=== PATIENT | female | born 1990 | race African-American/Black ===

== ENCOUNTER 2017-06-29 21:44 | Emergency (ER) | payer MEDICAID ==
[~2017-06-29] VITALS: Ht 170.2 cm; Wt 80.0 kg
[~2017-06-29 21:44] MED LIST: ARIP30TA2; QUET100T
[2017-06-29 22:40] VITALS: BP 110/74
== END 2017-06-30 03:23 | disposition left against medical advice (07) ==
LOC: ER 21:44
DX: R51 Headache (principal); Z53.21 Procedure and treatment not carried out due to patient leaving prior to being seen by health care provider

== ENCOUNTER 2018-04-01 16:04 | Emergency (ER) | payer MEDICAID ==
[~2018-04-01] VITALS: Ht 160 cm; Wt 100.5 kg
[2018-04-01] MEDS ORDERED: LORAZEPAM 1MG TABLET PO ONE (16:30)
[2018-04-01 19:23] VITALS: BP 129/68
== END 2018-04-01 19:24 | disposition home or self-care (01) ==
LOC: ER 17:10
DX: Z76.0 Encounter for issue of repeat prescription (principal); F20.9 Schizophrenia, unspecified; F32.9 Major depressive disorder, single episode, unspecified
CPT/HCPCS: 99283

== ENCOUNTER 2018-11-19 01:13 | Emergency (ER) | payer MEDICAID ==
[~2018-11-19] VITALS: Ht 162.6 cm; Wt 110.3 kg
[2018-11-19 01:16] VITALS: BP 135/74
== END 2018-11-19 08:21 | disposition left against medical advice (07) ==
LOC: ER 01:13
DX: R44.1 Visual hallucinations (principal); R45.851 Suicidal ideations; R07.89 Other chest pain; R06.02 Shortness of breath; Z53.21 Procedure and treatment not carried out due to patient leaving prior to being seen by health care provider

== ENCOUNTER 2018-12-09 14:17 | Emergency (ER) | payer MEDICAID ==
[~2018-12-09] VITALS: Ht 160 cm; Wt 74.0 kg
[2018-12-09] MEDS ORDERED: TETRACAINE 0.5% OPHTH DROPS 4ML OP ONE (15:45)
[2018-12-09] MEDS ORDERED: FLUORESCEIN SODIUM 1MG/STRIP OP ONE (15:45)
[2018-12-09 16:45] VITALS: BP 105/72
== END 2018-12-09 16:52 | disposition home or self-care (01) ==
LOC: ER 14:17
DX: H57.12 Ocular pain, left eye (principal); F14.10 Cocaine abuse, uncomplicated; Z98.890 Other specified postprocedural states
CPT/HCPCS: 99283

== ENCOUNTER 2019-01-12 14:53 | Emergency (ER) | payer MEDICAID ==
[~2019-01-12] VITALS: Ht 170.2 cm; Wt 89.0 kg
[2019-01-12] MEDS ORDERED: LORAZEPAM 1MG TABLET PO ONE (16:15)
[2019-01-12 16:43] LABS: BASOPHILS % 0.6 % (0.0-2.0); EOSINOPHILS % 1.3 % (0.0-5.0); HEMATOCRIT. 36.6 % (36.0-48.0); HEMOGLOBIN. 12.4 g/dL (12.0-16.0); LYMPHOCYTES % 26.5 % (20.0-50.0); MEAN CORPUSCULAR HEMOGLOBIN 30.5 pg (28.0-32.0); MEAN CORPUSCULAR VOLUME 90.4 fL (81.0-99.0); MEAN PLATELET VOLUME 8.3 fl (7.4-10.4); MONOCYTES % 8.2 % (2.0-8.0); NEUTROPHILS % 63.4 % (40.0-76.0); PLATELET 357 x1000/uL (130-400); RED BLOOD CELL COUNT 4.05 mill/uL (4.2-5.4); RED CELL DISTRIBUTION WIDTH 12.5 % (11.6-14.6)
[2019-01-12 16:47] LABS: CHLORIDE 111 mEq/L (98-107)
[2019-01-12 17:56] LABS: CLARITY URINE CLEAR (CLEAR); COLOR URINE YELLOW (YELLOW); KETONES URINE NEGATIVE (NEGATIVE); LEUKOCYTE ESTERASE URINE 1+ (NEGATIVE); NITRITE URINE NEGATIVE (NEGATIVE); OCCULT BLOOD URINE NEGATIVE (NEGATIVE); PH URINE 5.5 (4.5-8.0); PROTEIN URINE NEGATIVE (NEGATIVE); SPECIFIC GRAVITY URINE 1.025 (1.005-1.030); UROBILINOGEN URINE 0.2 E.U./dL (0.2-1.0)
[2019-01-12 18:05] LABS: *AMPHETAMINES SCREEN URINE NEGATIVE (NEGATIVE); *BARBITURATES SCREEN URINE NEGATIVE (NEGATIVE); *BENZODIAZEPINES SCREEN URINE NEGATIVE (NEGATIVE); *COCAINE SCREEN URINE NEGATIVE (NEGATIVE); METHADONE URINE SCREEN NEGATIVE (NEGATIVE); OPIATES URINE SCREEN NEGATIVE (NEGATIVE)
[2019-01-12 18:06] LABS: PHENCYCLIDINE URINE SCREEN NEGATIVE (NEGATIVE)
[2019-01-12 18:19] LABS: CANNABINOID URINE SCREEN PRESUMTIVE POSITIVE (NEGATIVE)
[2019-01-12] MEDS: NITROFURANTOIN 100MG M/M CAPSULE PO SCH (21:00)
[2019-01-13] MEDS ORDERED: NITROFURANTOIN MACROCRYSTAL 25MG CAPSULE PO ONE (09:15)
[2019-01-13] MEDS ORDERED: NITROFURANTOIN 100MG M/M CAPSULE PO SCH (09:15)
[2019-01-13] MEDS: NITROFURANTOIN 100MG M/M CAPSULE PO SCH (09:58)
[2019-01-13 13:11] VITALS: BP 124/60
== END 2019-01-13 13:35 ==
LOC: ER 14:53
DX: R45.851 Suicidal ideations (principal); F20.9 Schizophrenia, unspecified; F31.9 Bipolar disorder, unspecified; F14.10 Cocaine abuse, uncomplicated; Z79.899 Other long term (current) drug therapy
CPT/HCPCS: 36415; 80053; 80305; 81003; 81025; 85025; 99285; Z7610

== ENCOUNTER 2019-02-11 15:47 | Emergency (ER) | payer MEDICAID ==
[~2019-02-11] VITALS: Ht 162.6 cm; Wt 115.0 kg
[2019-02-11 16:03] VITALS: BP 111/70
== END 2019-02-11 18:04 | disposition left against medical advice (07) ==
LOC: ER 15:47
DX: M25.511 Pain in right shoulder (principal); Z53.21 Procedure and treatment not carried out due to patient leaving prior to being seen by health care provider

== ENCOUNTER 2019-02-12 13:07 | Emergency (ER) | payer MEDICAID ==
[~2019-02-12] VITALS: Ht 162.6 cm; Wt 73.0 kg
[2019-02-12 13:20] VITALS: BP 116/76
== END 2019-02-12 15:33 | disposition home or self-care (01) ==
LOC: ER 13:07
DX: M79.18 Myalgia, other site (principal)
CPT/HCPCS: 99282; 99283

== ENCOUNTER 2019-04-09 17:48 | Emergency (ER) | payer MEDICAID ==
[~2019-04-09] VITALS: Ht 162.6 cm; Wt 113.0 kg
[2019-04-09] MEDS ORDERED: IBUPROFEN 600MG TABLET PO ONE (18:15)
[2019-04-09 18:27] VITALS: BP 118/75
== END 2019-04-09 18:26 | disposition home or self-care (01) ==
LOC: ER 18:00
DX: H66.92 Otitis media, unspecified, left ear (principal)
CPT/HCPCS: 99283

== ENCOUNTER 2020-01-21 12:31 | Emergency (ER) | payer MEDICAID ==
[~2020-01-21] VITALS: Ht 165.1 cm; Wt 75.0 kg
[2020-01-21 14:00] VITALS: BP 157/95
== END 2020-01-21 14:27 | disposition home or self-care (01) ==
LOC: ER 12:41
DX: F20.9 Schizophrenia, unspecified (principal); Z76.0 Encounter for issue of repeat prescription; Z79.899 Other long term (current) drug therapy
CPT/HCPCS: 99283

== ENCOUNTER 2020-03-23 21:42 | Emergency (ER) | payer MEDICAID ==
[~2020-03-23] VITALS: Ht 170.2 cm; Wt 113.0 kg
[2020-03-23] MEDS ORDERED: KETOROLAC 60MG/2ML VIAL IM ONE (23:15)
[2020-03-23 23:59] VITALS: BP 112/77
== END 2020-03-23 23:59 | disposition home or self-care (01) ==
LOC: ER 21:42
DX: J45.909 Unspecified asthma, uncomplicated (principal); Z20.828 Contact with and (suspected) exposure to other viral communicable diseases; R51 Headache; R05 Cough; W22.8XXA Striking against or struck by other objects, initial encounter; Y93.89 Activity, other specified; Y92.89 Other specified places as the place of occurrence of the external cause; Y99.8 Other external cause status
CPT/HCPCS: 96372; 99283; C9803; J1885; U0003